=== PATIENT | male | born 1990 | race Two or more races ===

== ENCOUNTER 2019-08-25 02:12 | Emergency (ER) | payer SELFPAY ==
[~2019-08-25] VITALS: Ht 180.3 cm; Wt 95.3 kg
[2019-08-25 02:52] VITALS: BP 126/64
== END 2019-08-25 02:59 | disposition left against medical advice (07) ==
LOC: ER 02:14
DX: Z04.1 Encounter for examination and observation following transport accident (principal); Z02.89 Encounter for other administrative examinations; V49.49XA Driver injured in collision with other motor vehicles in traffic accident, initial encounter; Y93.89 Activity, other specified; Y99.8 Other external cause status; Y92.410 Unspecified street and highway as the place of occurrence of the external cause